=== PATIENT | male | born 1955 | race Caucasian/White ===

== ENCOUNTER → 2022-10-04 | Outpatient (CLI) | payer MEDICARE ==
[2022-10-04 10:50] LABS: CHOLESTEROL 105 mg/dL (<200); HDL CHOLESTEROL 70 mg/dL (29-71); LDL DIRECT 35 mg/dL (0-99); TRIGLYCERIDES 45 mg/dL (30-200)
== END | disposition home or self-care (01) ==
LOC: LAB 09-27 08:27
PROVIDERS: ATTEND Internal Medicine Cardiovascular Disease
DX: I25.10 Atherosclerotic heart disease of native coronary artery without angina pectoris (principal); E78.00 Pure hypercholesterolemia, unspecified; I25.84 Coronary atherosclerosis due to calcified coronary lesion
CPT/HCPCS: 36415; 80061

== ENCOUNTER → 2023-09-06 | Outpatient (CLI) | payer MEDICARE ==
[2023-09-06 12:51] LABS: INR 1.44 (0.85-1.15); PROTHROMBIN TIME 16.3 SEC (9.6-11.6)
[2023-09-06 12:52] LABS: PARTIAL THROMBOPLASTIN TIME 32.9 SEC (26.3-35.5)
== END | disposition home or self-care (01) ==
LOC: LAB 11:30
PROVIDERS: ATTEND Internal Medicine Cardiovascular Disease
DX: Z79.01 Long term (current) use of anticoagulants (principal); Z95.2 Presence of prosthetic heart valve
CPT/HCPCS: 36415; 85610; 85730

== ENCOUNTER → 2023-09-15 | Outpatient (CLI) | payer MEDICARE ==
[2023-09-15 13:49] LABS: INR 2.19 (0.85-1.15); PROTHROMBIN TIME 24.1 SEC (9.6-11.6)
[2023-09-15 13:50] LABS: PARTIAL THROMBOPLASTIN TIME 36.5 SEC (26.3-35.5)
== END | disposition home or self-care (01) ==
LOC: LAB 11:55
PROVIDERS: ATTEND Internal Medicine Cardiovascular Disease
DX: Z95.2 Presence of prosthetic heart valve (principal); Z79.01 Long term (current) use of anticoagulants
CPT/HCPCS: 36415; 85610; 85730

== ENCOUNTER → 2023-09-29 | Outpatient (CLI) | payer MEDICARE ==
[2023-09-29 11:03] LABS: INR 2.34 (0.85-1.15); PROTHROMBIN TIME 25.7 SEC (9.6-11.6)
== END | disposition home or self-care (01) ==
LOC: LAB 09:52
PROVIDERS: ATTEND Internal Medicine Cardiovascular Disease
DX: Z95.2 Presence of prosthetic heart valve (principal); Z79.01 Long term (current) use of anticoagulants
CPT/HCPCS: 36415; 85610